=== PATIENT | male | born 1985 | race Hispanic/Latino ===

== ENCOUNTER 2019-12-01 09:51 | Outpatient (CLI) | payer OTHER ==
--- NOTE | 2019-12-01 12:02 | CT ---
CT OF THE ABDOMEN AND PELVIS WITH AND WITHOUT IV CONTRAST INDICATION: Microscopic hematuria TECHNIQUE: Noncontrast CT of the abdomen and pelvis was performed. Postcontrast images were obtained in the nephrographic phase and delayed phase. Axial and coronal reformatted images were constructed from the raw data. COMPARISON: None FINDINGS: ABDOMEN: Lung bases: Clear Liver: No focal lesion. Gallbladder: Normal appearing. Pancreas: Normal. Adrenal glands: Normal. Spleen: Normal. Kidneys and ureters: Normal. No hydronephrosis. No gross urothelial lesion. Vasculature: Normal. Lymph nodes:No lymphadenopathy. Free fluid in abdomen:No free fluid is evident. PELVIS: Small and large bowel: Normal Appendix:Normal Bladder: The bladder is somewhat underdistended; however, there is suggestion of mild wall thickening . Rectal and perirectal soft tissues:Normal. Reproductive structures: Normal. Free fluid in pelvis: No free fluid is evident. Lymphadenopathy pelvis: No lymphadenopathy is evident. Osseous structures: No acute osseous abnormality. No destructive osteolytic or osteoblastic lesion i s identified. Soft tissues:Normal. IMPRESSION: 1. Suggestion of mild wall thickening involving the bladder; however, the bladder is underdistended. Would recommend correlation for any component of cystitis based on the clinical examination and urinary laboratories evaluation.
[2019-12-01] MEDS ORDERED: Iopamidol-370 76% 500 ML 1 ML ONE (14:42)
== END 2019-12-01 09:52 | disposition home or self-care (01) ==
LOC: BICCT 09:51
PROVIDERS: ATTEND Urology
DX: R31.9 Hematuria, unspecified (principal); M54.5 Low back pain; G89.29 Other chronic pain; N32.89 Other specified disorders of bladder
CPT/HCPCS: 74178; Q9967

== ENCOUNTER 2020-03-13 10:21 | Emergency (ER) | payer BC, OTHER ==
[2020-03-14 13:54] LABS: SARS-CoV-2 MS2 Positive; SARS-CoV-2 N Gene Negative; SARS-CoV-2 S Gene Negative; SARS-CoV-2 orf1ab Negative
== END 2020-03-13 10:46 | disposition home or self-care (01) ==
LOC: ERS 10:21
DX: Z20.828 Contact with and (suspected) exposure to other viral communicable diseases (principal); J45.909 Unspecified asthma, uncomplicated
CPT/HCPCS: 87635; 99283; U0003

== ENCOUNTER 2021-01-23 08:15 | Outpatient (CLI) | payer BC | END 2021-01-23 08:16 | disposition home or self-care (01) | LOC: BICULT 08:15 | PROVIDERS: ATTEND Urology | DX: Z31.69 Encounter for other general counseling and advice on procreation (principal); I86.1 Scrotal varices | CPT/HCPCS: 76870; 93976 ==

== ENCOUNTER 2023-07-12 20:47 | Observation (INO) | payer OTHER ==
[2023-07-12 21:22] LABS: Bacteria/HPF None Seen HPF (None Seen); Bilirubin Negative (Negative); Blood, Urine 2+ (Negative); CAUTI Indications for Culture Dysuria,urgency,freq; Clarity Clear (Clear); Glucose, Urine (Dipstick) Normal (Negative); Ketone, Urine Negative (Negative); Leukocyte Negative Leu/uL (Negative); Nitrite Negative (Negative); Protein, Urine (Dipstick) Negative (Neg-Trace); RBC/HPF 0-3 HPF (0-3); Specific Gravity, Urine 1.019 (1.002-1.036); Squamous Epithelial None Seen HPF (0-3); Urobilinogen Normal mg/dL (Less than 2); WBC/HPF 0-3 HPF (0-3); pH, Urine 5.5 (5.0-9.0)
[2023-07-12 21:23] LABS: #Basophils 0.1 thou/uL (0.0-0.2); #Eosinphils 1.1 thou/uL (0.0-0.7); #Monocytes 0.2 thou/uL (0.11-0.59); #Neutrophils 5.9 thou/uL (1.40-6.50); %Basophils 0.6 % (0.0-1.0); %Eosinophils 13.3 % (0.0-10.0); %Lymphocytes 10.3 % (21.0-51.0); %Monocytes 2.8 % (0.0-10.0); %Neutrophils 72.8 % (42.0-75.0); Mean Corpuscular HGB CONC 33.3 g/dL (32.0-36.0); Mean Corpuscular Hemoglobin 27.2 pg (27.0-31.0); Mean Corpuscular Volume 81.5 fl (78.0-98.0); Mean Platelet Volume 11.2 fL (7.4-10.4); Platelet Count 159 10x3/uL (130-400); RBC Distribution Width 14.8 % (11.5-14.5); Red Blood Cell (RBC) Count 5.89 mill/uL (4.70-6.10); White Blood Cell (WBC) Count 8.2 10x3/uL (4.8-10.8)
[2023-07-12 21:24] LABS: Urine Culture Reflex No No
[2023-07-12 21:46] LABS: ALT (SGPT) 458 U/L (8-55); AST (SGOT) 191 U/L (5-34); Albumin 4.7 g/dL (3.5-5.0); Alkaline Phosphatase 118 U/L (40-110); Anion Gap 14 mmol/L (10-20); BUN (Urea Nitrogen) 12 mg/dL (8.9-20.6); Bilirubin, Total 0.9 mg/dL (0.2-1.2); Calc. Creatinine Clearance 0 mL/min (70-130); Calcium 9.4 mg/dL (7.8-10.44); Carbon Dioxide 27 mmol/L (22-29); Chloride 102 mmol/L (98-107); Estimated GFR 114; Globulin 2.3 g/dL (2.4-3.5); Glucose 146 mg/dL (70-105); Lipase 10 U/L (8-78); Potassium 3.7 mmol/L (3.5-5.1); Sodium 139 mmol/L (136-145)
[2023-07-12] MEDS ORDERED: Ondansetron PF 4 MG/2 ML Vial ONE (23:06)
[2023-07-12] MEDS ORDERED: Morphine 4 MG/ML VIAL ONE (23:06)
[2023-07-13] MEDS ORDERED: Sodium Chloride 0.9% 100 ML ONE ×2 (00:27→11:46)
[2023-07-13] MEDS ORDERED: Piperacillin/Tazobactam 4.5 GM in Sodium Chloride 0.9% 100 ML IVPB SCH (01:00)
[2023-07-13] MEDS ORDERED: Morphine 4 MG/ML VIAL SLOW IVP PRN (02:24)
[2023-07-13] MEDS ORDERED: Ondansetron PF 4 MG/2 ML Vial IVP PRN (02:30)
[2023-07-13] MEDS ORDERED: Ondansetron ODT 4 MG TAB SL PRN (02:30)
[2023-07-13] MEDS: Sodium Chloride 0.9% 1,000 ML IV SCH ×2 (02:31→12:12)
[2023-07-13 02:59] VITALS: BMI 28.3
[2023-07-13] MEDS ORDERED: Bupivacaine 0.25% HCL 30 ML VIAL ONE (11:16)
[2023-07-13] MEDS ORDERED: EPINEPHrine 1 MG/ML AMP ONE (11:16)
[2023-07-13] MEDS ORDERED: fentaNYL PF 100 MCG/2 ML SYRINGE ONE (11:26)
[2023-07-13] MEDS ORDERED: CEFAZOLIN 2 GM VIAL ONE (11:46)
[2023-07-13] MEDS ORDERED: Dexamethasone 20 MG/5 ML VIAL ONE (11:48)
[2023-07-13] MEDS ORDERED: NEOSTIGMINE 3 MG/3 ML SYR 3 MG/3 ML SYRINGE ONE (11:48)
[2023-07-13] MEDS ORDERED: Glycopyrrolate 0.2 MG/ML 5 ML SYRINGE ONE (11:48)
[2023-07-13] MEDS ORDERED: Lidocaine 1% PF 5 ML VIAL ONE (11:48)
[2023-07-13] MEDS ORDERED: Ondansetron PF 4 MG/2 ML Vial ONE (11:48)
[2023-07-13] MEDS ORDERED: Albuterol HFA (OR) 200 PUFF INH ONE (11:48)
[2023-07-13] MEDS ORDERED: Ketorolac Tromethamine 30 MG/ML VIAL ONE (11:48)
[2023-07-13] MEDS ORDERED: Rocuronium Bromide 10 MG/ML (10ML VIAL) ONE (11:48)
[2023-07-13] MEDS ORDERED: PROPOFOL 200 MG/20 ML VIAL ONE (11:48)
[2023-07-13] MEDS ORDERED: Ondansetron HCl/PF 4 MG/2 ML Vial IVP PRN (13:11)
[2023-07-13] MEDS ORDERED: HYDROmorphone 2 MG/ML VIAL SLOW IVP PRN (13:11)
[2023-07-13] MEDS ORDERED: PACU-Morphine 4MG/ML VIAL SLOW IVP PRN (13:11)
[2023-07-13] MEDS ORDERED: Meperidine HCl/PF 25 MG/ML VIAL SLOW IVP PRN (13:11)
[2023-07-13] MEDS ORDERED: Promethazine HCl 25 MG/ML VIAL IM PRN (13:11)
[2023-07-13] MEDS ORDERED: Ketorolac Tromethamine 30 MG/ML VIAL IVP PRN (13:11)
[2023-07-13] MEDS ORDERED: Morphine Sulfate 2 MG/ML SYRINGE SLOW IVP PRN (13:11)
[2023-07-13] MEDS ORDERED: fentaNYL 50 mcg/mL 1 mL Vial ONE ×2 (14:06→14:23)
[2023-07-13 15:42] VITALS: BP 120/74; TEMP 97.9
[2023-07-13] MEDS ORDERED: traMADol HCl 50 MG TAB PO PRN (16:24)
[2023-07-13] MEDS ORDERED: Acetaminophen/Codeine 30-300mg Tablet PO PRN (17:48)
[2023-07-13] MEDS ORDERED: Acetaminophen 500 MG TAB PO SCH (18:00)
[2023-07-13] MEDS ORDERED: Ibuprofen 200 MG TAB PO SCH (18:00)
[2023-07-13] MEDS ORDERED: traMADol HCl 50 MG TAB PO SCH (18:00)
== END 2023-07-13 19:05 | disposition home or self-care (01) ==
LOC: ERS 20:47 → SJJU 07-13 00:27
PROVIDERS: ADMIT Student in an Organized Health Care Education/Training Program; ATTEND Student in an Organized Health Care Education/Training Program
PROC: 0FT44ZZ Resection of Gallbladder, Percutaneous Endoscopic Approach (ICD-10-PCS; principal; 2023-07-13)
DX: K80.12 Calculus of gallbladder with acute and chronic cholecystitis without obstruction (principal); R74.01 Elevation of levels of liver transaminase levels
CPT/HCPCS: 36415; 76705; 80053; 81001; 83690; 85025; 88304; 96361; 96365; 96375; 96376; C1889; G0378; J0171; J1100; J1885; J2270; J2405; J2543; J2704; J3010; J3490; J7050; S0020

== ENCOUNTER 2024-07-10 20:45 | Emergency (ER) | payer BC, OTHER ==
[2024-07-10] MEDS ORDERED: Ibuprofen 200 MG TAB ONE (22:30)
== END 2024-07-10 23:26 | disposition home or self-care (01) ==
LOC: ERS 20:45
DX: S66.911A Strain of unspecified muscle, fascia and tendon at wrist and hand level, right hand, initial encounter (principal); S16.1XXA Strain of muscle, fascia and tendon at neck level, initial encounter; V89.2XXA Person injured in unspecified motor-vehicle accident, traffic, initial encounter
CPT/HCPCS: 72100; 72125